=== PATIENT | male | born 1995 | race Caucasian/White ===

== ENCOUNTER 2020-05-17 09:27 | Emergency (ER) | payer MEDICAID ==
[~2020-05-17] VITALS: Ht 180.3 cm; Wt 78.9 kg
--- NOTE | 2020-05-17 09:32 | NUR ---
PT TAKEN TO BED 7 FOR BEDSIDE TRIAGE.
[2020-05-17 09:35] VITALS: BP 141/65
--- NOTE | 2020-05-17 09:45 | NUR ---
25 y/m presents with l hip injury x 2 weeks, pt reports he fell of his skateboard. pt reprots 6/10 sharp stinging pain that radiates down to hip l foot. pt denies taking any medication for pain. steady gait while ambulating. no visible edema or echymosis. pedal pulse 2 + pmh- childhood asthma rx- denies nkda
--- NOTE | 2020-05-17 09:45 | NUR ---
pt taken to xr via wheelchair.
--- NOTE | 2020-05-17 10:10 | NUR ---
dr. [place] at bedside.
[2020-05-17] MEDS ORDERED: KETOROLAC 30 MG/ML VIAL IM ONE (10:15)
[2020-05-17] MEDS ORDERED: IBUPROFEN 600 MG TAB PO ONE (10:30)
[2020-05-17 10:37] VITALS: BP 141/65
== END 2020-05-17 10:37 | disposition home or self-care (01) ==
LOC: MED 09:27
DX: S73.102A Unspecified sprain of left hip, initial encounter (principal); S70.02XA Contusion of left hip, initial encounter; V00.131A Fall from skateboard, initial encounter; Y93.51 Activity, roller skating (inline) and skateboarding; Y92.89 Other specified places as the place of occurrence of the external cause; Y99.8 Other external cause status
CPT/HCPCS: 72100; 73502; 96372; 99284; J1885

== ENCOUNTER 2021-01-06 19:02 | Emergency (ER) | payer OTHER, MEDICAID ==
[~2021-01-06] VITALS: Ht 180.3 cm; Wt 81.6 kg
[2021-01-06 19:06] VITALS: BP 124/61
--- NOTE | 2021-01-06 19:10 | NUR ---
ERMD AT BEDSIDE FOR MEDICAL EVALUATION.
--- NOTE | 2021-01-06 19:10 | NUR ---
25 YR OLD MALE PRESENTED TO THE ER WITH CC OF RIGHT FOOT PAIN. PT IS AOX4. PT STATES 5/10 NON-RADIATING PRESSURE PAIN ON RIGHT FOOT. PT STATES A PALLET SIMON WENT OVER RIGHT FOOT 3AM THIS MORNING. PT HAS BRUISING ON TOP OF RIGHT FOOT. PT IS ABLE TO MOVE RIGHT FOOT AND ALL TOES. PT HAS CAPILLARY REFILL LESS THAN 2 SECONDS IN ALL TOES. PT HAS NO SIGNS OF DEFORMITY TO RIGHT FOOT. BED LOCKED IN LOWEST POSITION. WILL CONTINUE TO MONITOR. HISTORY- NONE ALLERGIES- NONE Addendum: 01/06/21 at 1921 by MEDOE 25 YR OLD MALE PRESENTED TO THE ER WITH CC OF RIGHT FOOT PAIN. PT IS AOX4. PT STATES 5/10 NON-RADIATING PRESSURE PAIN ON RIGHT FOOT. PT STATES A PALLET SIMON WENT OVER RIGHT FOOT. PT HAS BRUISING ON TOP OF RIGHT FOOT. PT IS ABLE TO MOVE RIGHT FOOT AND ALL TOES. PT HAS CAPILLARY REFILL LESS THAN 2 SECONDS IN ALL TOES. PT HAS RIGHT PEDAL PULSE. PT HAS NO SIGNS OF DEFORMITY TO RIGHT FOOT. BED LOCKED IN LOWEST POSITION. WILL CONTINUE TO MONITOR. HISTORY- NONE ALLERGIES- NONE
--- NOTE | 2021-01-06 19:11 | NUR ---
SPRUE KNOCKER AT BEDSIDE.
[2021-01-06] MEDS ORDERED: IBUPROFEN 600 MG TAB PO ONE (19:25)
--- NOTE | 2021-01-06 19:43 | NUR ---
PT RIGHT FOOT WAS WRAPPED WITH TWILA WRAPPING. PT HAS POSITIVE PULSE, MOTOR, AND SENSORY TO RIGHT FOOT BEFORE AND AFTER TWILA WRAPPING. PT WAS ALSO PROVIDED CRUTCHES. PT WAS TAUGHT HOW TO USE CRUTCHES AND PT SUCCESSFULLY RETURNED DEMONSTRATION OF CRUTCH USE.
[2021-01-06 19:55] VITALS: BP 124/61
--- NOTE | 2021-01-06 19:55 | NUR ---
Patient discharged with v/s stable. Written and verbal after care instructions given and explained. Patient alert, oriented and verbalized understanding of instructions. Ambulatory with steady gait AND WITH CRUTCHES. All questions addressed prior to discharge. ID band removed. Patient advised to follow up with PMD. Rx of MOTRIN given. Patient educated on indication of medication including possible reaction and side effects. Opportunity to ask questions provided and answered.
[2021-01-06] MEDS ORDERED: PENICILLIN G BENZATHINE L-A 1.2 MU/2 ML SYR IM ONE (20:50)
== END 2021-01-06 19:55 | disposition home or self-care (01) ==
LOC: MED 19:02
DX: S93.691A Other sprain of right foot, initial encounter (principal); F17.210 Nicotine dependence, cigarettes, uncomplicated; F12.10 Cannabis abuse, uncomplicated; W22.8XXA Striking against or struck by other objects, initial encounter; Y92.89 Other specified places as the place of occurrence of the external cause; Y93.89 Activity, other specified; Y99.8 Other external cause status
CPT/HCPCS: 73630; 99283; J0561